=== PATIENT | female | born 1980 | race Caucasian/White ===

== ENCOUNTER 2016-05-06 01:12 | Emergency (ER) | payer OTHER ==
--- NOTE | ~2016-05-06 | CR172 ---
[facility]. [facility] A Service of [facility] & [facility] RADIOLOGY TEXT RESULTS PATIENT: SHRUTHI CORRAL LOCATION: SED : [birth year] UNIT #: [id number] AGE: [address]: OLIVER DERAS PA-C SEX: F ORDER DR: [id number] [address] [address] [id number] E MR#: [id number] Acc #: [id number] NAME: SHRUTHI CORRAL : 1980 SEX: F STUDY DATE/TIME: 05/06/2016 1:22 UNIT: SED ROOM: STUDY DESCRIPTION: CR Knee 3 Views Lt Attending Physician: Oliver Deras Pa-C Ordering Physician: Physician Non-Staff MEDICAL IMAGING REPORT This report is preliminary unless electronic signature is present. EXAM Left knee 3 views, 05/06/2016 INDICATION 35-year-old female with history of trauma. Fell tonight at 22:30 hours. Knee pain. TECHNIQUE 3 views. COMPARISON No comparisons. FINDINGS The examination is negative. There is no acute fracture or joint effusion. Soft tissues unremarkable. IMPRESSION Negative. Dictated by... José Miguel Daniels M.D. THIS IS AN ELECTRONICALLY VERIFIED REPORT José Miguel Daniels M.D. at 05/09/2016 9:12 AM Chay TD: 05/06/2016 08:29 JOB #: [id number] MEDICAL IMAGING REPORT Page 1 of 1
[~2016-05-06 01:12] MED LIST: AMBIEN CR PO; DIAZEPAM PO; DOXYCYCLINE PO; FIORINAL CAPSUL1 CAP PO; FIORINAL W/CODE1 CAP PO; HYDROCODONE-APA1 T33 PO; KEPPRA500 MG PO; KLONOPIN PO; NO MEDICATIONS; TYLENOL #3 PO; [UNRECOGNIZED DRUG - REMARK]
== END 2016-05-06 02:14 | disposition home or self-care (01) ==
LOC: SED 01:12
DX: M25.562 Pain in left knee (principal); F17.210 Nicotine dependence, cigarettes, uncomplicated; Z88.0 Allergy status to penicillin; Z79.899 Other long term (current) drug therapy
CPT/HCPCS: 29530; 73562; 99283